=== PATIENT | female | born 1960 | race Caucasian/White ===

== ENCOUNTER 2020-07-02 10:14 | Emergency (ER) | payer MEDICARE, OTHER ==
[~2020-07-02] VITALS: Ht 162.5 cm; Wt 72.7 kg
[2020-07-02] MEDS: fentaNYL INJECTION 100 MCG/2 ML AMP IVP STA (10:30)
[2020-07-02] MEDS: ONDANSETRON 4 MG/2 ML (SDV) Z0FRAN IVP STA (10:30)
--- NOTE | 2020-07-02 10:30 | ED Upper Extremity ---
General Stated Complaint: LEFT ARM INJURY Source: patient History of Present Illness Date Seen by Provider: Jul 02, 2020 Time Seen by Provider: 10:15 Initial Comments 59-year-old female presenting with left arm pain and swelling. She states that she was kicked in the arm by a horse. She denies any other injuries. She has bruising and swelling to her forearm. There is a break in the skin by her wrist and a large hematoma by her elbow. She states that her last tetanus was about 10 years ago when she had her reaction to it with over 3 weeks of pain after the shot. She did take a hydrocodone 5 mg pill around 10 AM before coming to the emergency department. She denies hitting her head or losing consciousness with this injury. She ate some toast and bananas about an hour prior to arrival. She has increased pain in her arm with movement. She has intact sensation to her hand and fingers. Onset: just prior to arrival Severity: severe Pain/Injury Location: left arm, left elbow, left forearm Method of Injury: other (kicked by horse) Allergies and Home Medications Allergies Coded Allergies: No Known Drug Allergies (Unverified , 07/02/20) Home Medications Oxycodone HCl/Acetaminophen 1 Each Tablet, 1 EACH PO Q6H PRN for PAIN-SEVERE (8- 10) Prescribed by: CLEMENTINA BURTON on 07/02/20 1145 Patient Home Medication List Home Medication List Reviewed: Yes Review of Systems Constitutional: no symptoms reported EENTM: no symptoms reported Respiratory: no symptoms reported Cardiovascular: no symptoms reported Gastrointestinal: no symptoms reported Genitourinary: no symptoms reported Musculoskeletal: see HPI Skin: see HPI Psychiatric/Neurological: See HPI Past Bmiozwr-Wofrwn-Xzaxyd Hx Past Med/Social Hx: Reviewed Nursing Past Med/Soc Hx Past Medical History Surgeries: No Respiratory: No Hypertension Neurological: No Reproductive Disorders: No Genitourinary: No Gastrointestinal: No Musculoskeletal: Yes Fibromyalgia Endocrine: No HEENT: No Cancer: No Psychosocial: No Physical Exam Vital Signs Vital Signs - First Documented 07/02/20 10:20 Temp 36.7 Pulse 73 Resp 18 B/P (MAP) 164/86 (112) Pulse Ox 99 O2 Delivery Room Air Capillary Refill : Height, Weight, BMI Height: '" Weight: lbs. oz. kg; BMI Method: General Appearance: WD/WN, moderate distress HEENT: pharynx normal Neck: non-tender, full range of motion, supple, normal inspection Cardiovascular: normal peripheral pulses, regular rate, rhythm Respiratory: chest non-tender, lungs clear, normal breath sounds Gastrointestinal: normal bowel sounds, non tender, soft, no pulsatile mass Shoulder: No deformity, No ecchymosis; limited ROM (left shoulder due to pain in the left arm with movement); No swelling Elbow/Forearm: Left, abrasions (abrasions on the left forearm by her wrist), ecchymosis (large hematoma and bruising to the left elbow and forearm), limited ROM (limited range of motion to the left elbow due to pain and swelling), pain, soft tissue tenderness Wrist: Yes abrasions (left wrist); No deformity; Yes limited ROM (left wrist limited range of motion due to pain) Neurologic/Tendon: normal sensation, normal motor functions (normal range of motion of the hand and fingers with intact sensation and tendons on the left side) Neurologic/Psychiatric: alert, oriented x 3 Skin: warm/dry, ecchymosis (left forearm) Progress/Results/Core Measures Results/Orders Lab Results Laboratory Tests Test 07/02/20 10:27 Range/Units White Blood Count 3.8 L 4.3-11.0 10^3/uL Red Blood Count 4.16 L 4.35-5.85 10^6/uL Hemoglobin 12.7 11.5-16.0 G/DL Hematocrit 38 35-52 % Mean Corpuscular Volume 90 80-99 FL Mean Corpuscular Hemoglobin 31 25-34 PG Mean Corpuscular Hemoglobin Concent 34 32-36 G/DL Red Cell Distribution Width 11.8 10.0-14.5 % Platelet Count 238 130-400 10^3/uL Mean Platelet Volume 9.3 7.4-10.4 FL Neutrophils (%) (Auto) 47 42-75 % Lymphocytes (%) (Auto) 40 12-44 % Monocytes (%) (Auto) 9 0-12 % Eosinophils (%) (Auto) 3 0-10 % Basophils (%) (Auto) 1 0-10 % Neutrophils # (Auto) 1.8 1.8-7.8 X 10^3 Lymphocytes # (Auto) 1.5 1.0-4.0 X 10^3 Monocytes # (Auto) 0.4 0.0-1.0 X 10^3 Eosinophils # (Auto) 0.1 0.0-0.3 10^3/uL Basophils # (Auto) 0.0 0.0-0.1 10^3/uL Sodium Level 138 135-145 MMOL/L Potassium Level 4.0 3.6-5.0 MMOL/L Chloride Level 104 98-107 MMOL/L Carbon Dioxide Level 23 21-32 MMOL/L Anion Gap 11 5-14 MMOL/L Blood Urea Nitrogen 11 7-18 MG/DL Creatinine 0.85 0.60-1.30 MG/DL Estimat Glomerular Filtration Rate > 60 BUN/Creatinine Ratio 13 Glucose Level 116 H 70-105 MG/DL Calcium Level 9.0 8.5-10.1 MG/DL Corrected Calcium 8.8 8.5-10.1 MG/DL Total Bilirubin 0.2 0.1-1.0 MG/DL Aspartate Amino Transf (AST/SGOT) 16 5-34 U/L Alanine Aminotransferase (ALT/SGPT) 10 0-55 U/L Alkaline Phosphatase 76 40-136 U/L Total Protein 6.6 6.4-8.2 GM/DL Albumin 4.2 3.2-4.5 GM/DL My Orders Orders - CLEMENTINA BURTON MD Comprehensive Metabolic Panel (07/02/20 10:22) Ed Iv/Invasive Line Start (07/02/20 10:22) Cbc With Automated Diff (07/02/20 10:22) Fentanyl Injection (Sublimaze Injection (07/02/20 10:22) Ondansetron Injection (Zofran Injectio (07/02/20 10:22) Ice: Apply To Affected Area (07/02/20 10:23) Elevate Affected Extremity (07/02/20 10:23) Forearm 2 View Left (07/02/20 10:23) Humerus 2 View Left (07/02/20 10:23) Oxycodone/Apap 5/325mg Tablet (Percocet (07/02/20 11:38) Diogo Bandage (07/02/20 11:38) Wound Dressing-Ed (07/02/20 11:38) Vital Signs/I&O 07/02/20 07/02/20 10:20 11:50 Temp 36.7 36.7 Pulse 73 75 Resp 18 16 B/P (MAP) 164/86 (112) 162/86 (112) Pulse Ox 99 99 O2 Delivery Room Air Progress Progress Note #1: Progress Note IV obtained and given fentanyl for pain. Zofran to try and prevent nausea and vomiting. Obtain x-rays of the left forearm and humerus. Ice and elevation to try and help with pain and swelling. Progress Note #2: Time: 11:13 Progress Note Pain improved after Fentanyl injection. No obvious fracture on imaging. Progress Note #3: Progress Note after cleaning the abrasions on her distal forearm with surgical soap and water the 2 abrasions were still noted to be superficial. One was slightly gaping and had Steri-Strips applied to it. An Diogo wrap was applied to the hematoma on her proximal forearm by the elbow. Patient was placed in a sling to give her chance to try to rest her forearm and humerus. Counseled on follow-up and return precautions. She stated that the hydrocodone she takes for chronic pain has not been helping very much and was causing her to have a lot of itching. We will try Percocet and have her check with her primary about this. She was also concerned that she may have injured her rotator cuff so advised once the initial pain and settled she may need to check with her primary doctor and they may need to do MRI or further imaging. Also if she continues to have pain in 5-7 days out she may have to have repeat x-rays but no fractures were seen on imaging from today. Diagnostic Imaging Diagonstic Imaging: Xray Plain Films/CT/US/NM/MRI: forearm Comments NAME: DORINDA LUIS [facility] REC#: [id number] PT STATUS: REG ER : 1960 PHYSICIAN: CLEMENTINA BURTON MD ADMIT DATE: 07/02/20/ER FS Draft Date of Exam:07/02/20 FOREARM 2 VIEW LEFT INDICATION: Left forearm pain. EXAMINATION: AP and lateral views of the left forearm are obtained. FINDINGS: No fracture or acute bony abnormality is seen. IMPRESSION: Negative left forearm. Dictated on workstation # [id number] Dict: 07/02/20 1056 Trans: 07/02/20 1104 [facility] [id number] Interpreted by: AVNI ELAM MD Electronically signed by: Reviewed: Reviewed by Me Diagonstic Imaging: Xray Plain Films/CT/US/NM/MRI: other (humerus) Comments [facility], [place] NAME: DORINDA LUIS [facility] REC#: [id number] PT STATUS: REG ER : 1960 PHYSICIAN: CLEMENTINA BURTON MD ADMIT DATE: 07/02/20/ER FS Signed Date of Exam:07/02/20 HUMERUS 2 VIEW LEFT Indication: Left arm injury, kicked by horse 3 views of the left humerus show no fracture or dislocation. IMPRESSION: Negative left humerus Dictated by: Dictated on workstation # [id number] Dict: 07/02/201056 Trans: 07/02/20 105 [id number] Interpreted by: SERVANDO GALINDO MD Electronically signed by: SERVANDO GALINDO MD 07/02/201056 Reviewed: Reviewed by Me Departure Impression Primary Impression: Traumatic hematoma of left forearm Qualified Codes: S50.12XA - Contusion of left forearm, initial encounter Additional Impressions: Abrasion of left forearm, initial encounter Shoulder pain, left Qualified Codes: M25.512 - Pain in left shoulder Contusion of left upper extremity Qualified Codes: S40.022A - Contusion of left upper arm, initial encounter Disposition: 01 HOME, SELF-CARE Condition: Stable Departure-Patient Inst. Decision time for Depature: 11:41 Referrals: NO,LOCAL PHYSICIAN (PCP/Family) Primary Care Physician Patient Instructions: Contusion (DC), HEMATOMA, How to Use a Shoulder Sling, Skin Abrasions (DC) Add. Discharge Instructions: Try to elevate left arm above heart level to help with swelling and pain. Use diogo bandage to help with the hematoma and swelling to forearm. Ice 15-20 minutes every few hours to help with swelling and pain. Sling for next few days to help your arm rest. Check with clinic if not improving in 5-7 days and they may need to repeat xrays or check your shoulder for rotator cuff injury if still having problems. Scripts Oxycodone HCl/Acetaminophen (Oxycodone-Acetaminophen 5-325) 1 Each Tablet 1 EACH PO Q6H PRN for PAIN-SEVERE (8-10) MDD 6 for 3 Days, #12 TAB 0 Refills Prov: CLEMENTINA BURTON MD 07/02/20 Images Extremities-Upper 1 - Moderate, Contusion, Ecchymosis, Swelling (large hematoma), Tenderness (tender to palpation) 2 - Abrasion (superficial abrasions to forearm by wrist), Tenderness CLEMENTINA BURTON MD Jul 02, 2020 10:30
[2020-07-02 10:35] LABS: HEMATOCRIT 38 % (35-52); HEMOGLOBIN 12.7 G/DL (11.5-16.0); MEAN CORPUSCULAR HEMOGLOBIN 31 PG (25-34); WHITE BLOOD COUNT 3.8 10^3/uL (4.3-11.0)
[2020-07-02 10:36] LABS: BASOPHILS % (AUTO) 1 % (0-10); EOSINOPHILS # (AUTO) 0.1 10^3/uL (0.0-0.3); EOSINOPHILS % (AUTO) 3 % (0-10); LYMPHOCYTES # (AUTO) 1.5 X 10^3 (1.0-4.0); LYMPHOCYTES % (AUTO) 40 % (12-44); MEAN CORPUSCULAR HGB CONC 34 G/DL (32-36); MEAN CORPUSCULAR VOLUME 90 FL (80-99); MEAN PLATELET VOLUME 9.3 FL (7.4-10.4); MONOCYTES # (AUTO) 0.4 X 10^3 (0.0-1.0); MONOCYTES % (AUTO) 9 % (0-12); NEUTROPHILS # (AUTO) 1.8 X 10^3 (1.8-7.8); NEUTROPHILS % (AUTO) 47 % (42-75); PLATELET COUNT 238 10^3/uL (130-400); RED CELL DISTRIBUTION WIDTH 11.8 % (10.0-14.5)
[2020-07-02 10:55] LABS: ALANINE AMINOTRANSFERASE 10 U/L (0-55); ALBUMIN 4.2 GM/DL (3.2-4.5); ALKALINE PHOSPHATASE 76 U/L (40-136); BILIRUBIN,TOTAL 0.2 MG/DL (0.1-1.0); BUN/CREATININE RATIO 13; CARBON DIOXIDE 23 MMOL/L (21-32); CHLORIDE 104 MMOL/L (98-107); CREATININE SERUM 0.85 MG/DL (0.60-1.30); GFR ESTIMATED > 60; GLUCOSE 116 MG/DL (70-105); SODIUM 138 MMOL/L (135-145); TOTAL PROTEIN 6.6 GM/DL (6.4-8.2)
--- NOTE | 2020-07-02 10:58 | Diagnostic Imaging Report ---
Indication: Left arm injury, kicked by horse 3 views of the left humerus show no fracture or dislocation. IMPRESSION: Negative left humerus Dictated by: Dictated on workstation # [id number]
--- NOTE | 2020-07-02 11:04 | Diagnostic Imaging Report ---
INDICATION: Left forearm pain. EXAMINATION: AP and lateral views of the left forearm are obtained. FINDINGS: No fracture or acute bony abnormality is seen. IMPRESSION: Negative left forearm. Dictated by: Dictated on workstation # [id number]
[2020-07-02] MEDS: oxyCODONE/APAP 5/325MG (PERCOCET 5) TABLET PO STA (11:44)
[2020-07-02] MEDS ORDERED: OXYC-471 PO (11:45)
[2020-07-02 11:50] VITALS: BP 162/86
== END 2020-07-02 11:49 | disposition home or self-care (01) ==
LOC: ER FS 10:17
DX: S50.12XA Contusion of left forearm, initial encounter (principal); S60.812A Abrasion of left wrist, initial encounter; M25.512 Pain in left shoulder; M79.7 Fibromyalgia; W55.12XA Struck by horse, initial encounter
CPT/HCPCS: 36415; 73060; 73090; 80053; 85025; 99284; A4565